=== PATIENT | female | born 1965 | race Caucasian/White ===

== ENCOUNTER 2017-09-15 16:19 | Observation (INO) ==
[2017-09-15] MEDS ORDERED: ADENOSINE IVP ONE (16:45)
[2017-09-15] MEDS ORDERED: ADENOSINE 6mg/2ml INJECTION IVP ONE (16:45)
[2017-09-15] MEDS ORDERED: SALINE FLUSH 10ml SYRINGE IVF PRN (16:45)
[2017-09-15] MEDS ORDERED: NS 1,000 ML IV ONE (16:45)
[2017-09-15] MEDS ORDERED: DiltiaZEM 25 MG/5 ML INJECTION IVP ONE ×2 (16:45→17:21)
--- NOTE | 2017-09-15 16:53 | Emergency Department Report ---
Cardiac General HPI - General Stated Complaint: Irregular heart rhythm Source: patient Mode of arrival: ambulatory Limitations: no limitations - History of Present Illness HPI narrative: 51yo woman presents to the ER for a fast heart rate. Pt has a known h/o mitral valve prolapse and SVT. Pts delivery mgr is Dr. Meyer - pt has not seen him for quite some time. Appx 1 year ago, she self-d/c'ed her digoxin and labetalol. Today, pt was talking on the phone with her children when she felt her heart go into a fast rhythm again. Pt presented to the ER for evaluation. Occurred At: home Onset (ago): minute(s) Duration: constant Severity: similar to previous episodes Context: change in medication Activites at Onset: emotional stress Prior Chest Pain/Cardiac Workup: echocardiography Modifying Factors: none Nitro Today: no nitro taken today Aspirin Today: unknown Associated Symtoms: shortness of breath, nausea, anxiety History of Similar Symptoms: Yes - Related Data Home Medications Medication Instructions Recorded Confirmed Gabapentin 900 mg PO HS #360 10/14/14 09/15/17 buPROPion HCl [Bupropion Xl] 300 mg PO HS #30 10/14/14 09/15/17 Amitriptyline [Elavil] 50 mg PO HS 09/15/17 09/15/17 Cholecalciferol [Vit. D-3] 1,000 unit PO DAILY 09/15/17 09/15/17 Multivitamin [One Daily 1 each PO DAILY 09/15/17 09/15/17 Multivitamin] Allergies Allergy/AdvReac Type Severity Reaction Status Date / Time hydrocodone Allergy Severe ALL Verified 09/15/17 16:52 NARCOTICS MAKE HER ITCH, NO RASH; NAUSEA ON EMPTY STOMAC Iodinated Contrast- Oral and Allergy Severe SWOLLEN Verified 09/15/17 16:52 IV Dye LIP, HIVES Sulfa (Sulfonamide Allergy Severe hives, Verified 09/15/17 16:52 Antibiotics) anaphalactic reaction Tetanus Vaccines and Toxoid Allergy Intermediate FEVER,NAUSEA, Verified 16:52 ACHEY ibuprofen Allergy Unknown ITCHING Verified 09/15/17 16:52 morphine AdvReac Unknown MAKES ITCH Verified 09/15/17 16:52 Review of Systems All systems: reviewed and negative except as stated Cardiovascular: Reports: as per HPI, palpitations PFSH Patient Stated Medical History Cardiac Arrhythmia Yes Other Cardiology Yes: SVT, mitral valve prolapse Medical History Updates: Anxiety/depr - Social History Smoking status: Never smoker Physical Exam - Limitations Limitations: no limitations - General General appearance: alert, in distress - Normal Exams: Head:: Normocephalic without trauma Eyes:: Pupils are PERRLA w/ EOMI, No scleral icterus, irritation, or foreign bodies noted ENMT:: No facial trauma, nasal exudates, pharyngeal erythema, or exudates are noted Neck:: Full range of motion, without adenopathy Lymphatic:: No lymphadenopathy Musculoskeletal:: No tenderness, or deformity noted Integumentary:: No rashes, hives, or bruising noted Neurological:: Patient is alert, and oriented Psychiatric:: Patient exhibits, appropriate attention Course - Consultations Consultation #1: Dr. Zazueta: Presented to the ER and evaluated pt. Will admit pt for rate control and conversion. Time: 17:22 Vital Signs Pulse Rate 197 H 09/15/17 16:20 Temperature 98.0 F 09/15/17 16:27 Pulse Rate 127 H 09/15/17 17:28 Respiratory Rate 19 09/15/17 17:28 Blood Pressure 113/76 09/15/17 17:28 Pulse Oximetry 98 09/15/17 17:28 Cardiac General - MDM Narrative Medical decision making narrative: Pt with SVT on initial presentation. Adenocard x2 decreased pts rate to 130s. Pt given diltiazem 20mg bolus with decrease to 110s. Pt given a second dose of diltiazem (25mg) with no improvement in rate. Discussed case with Dr. Zazueta, who will admit to CCU for rate control and plan for conversion. - Differential Diagnosis Differential diagnosis: Likely: palpitations, anxiety, sinus tachycardia, artial fibrillation, artial flutter, supraventricular tachycardia - Medical Records Attestation: I reviewed the patient's medical records. - Lab Data Attestation: I reviewed the patient's lab results. Result diagrams: 09/15/17 16:35 09/15/17 16:35 Lab Results 09/15/17 09/15/17 09/15/17 Range/Units 16:35 16:35 16:35 WBC 6.8 (4.5-11.0) T/MM3 RBC 4.45 (4.00-5.20) M/MM3 Hgb 13.0 (12-16) GM/DL Hct 38.9 (36-46) % MCV 87.4 (80-100) UM3 MCH 29.2 (26-34) UUG MCHC 33.4 (31-37) GM/DL RDW Std Deviation 39.4 (36.9-50.2) FL Plt Count 250 (130-400) T/MM3 MPV 9.6 (9.4-12.4) UM3 Immature Gran % (Auto) 0.0 (0.0-0.5) % Neut % (Auto) 60.5 (33-66) % Lymph % (Auto) 30.2 (23-45) % [place] % (Auto) 6.2 (0-9.0) % Eos % (Auto) 2.5 (0-4) % Baso % (Auto) 0.6 (0-2) % Neut # (Auto) 4.1 (1.8-7.7) T/MM3 Lymph # (Auto) 2.0 (1-4.8) T/MM3 [place] # (Auto) 0.4 (0-0.8) T/MM3 Eos # (Auto) 0.2 (0-0.5) T/MM3 Baso # (Auto) 0.0 (0-0.2) T/MM3 Abs Immat Gran (auto) 0.00 (0.00-0.03) T/MM3 D-Dimer < 150 (0-230) NG/ML Turbidity < 20 (0-20) Sodium 145 H (134-144) MEQ/L Potassium 4.7 (3.6-5) MEQ/L Chloride 104 (98-107) MEQ/L Carbon Dioxide 30 (22-30) MEQ/L Anion Gap 11 (5-15) MEQ/L BUN 10.0 (7-17) MG/DL Creatinine 1.0 (0.7-1.2) MG/DL GFR Calculation 59 BUN/Creatinine Ratio 10 (6-26) RATIO Glucose 108 (65-110) MG/DL Calculated Osmolality 279 (261-280) MOSM/KG Calcium 9.7 (8.4-10.2) MG/DL Total Bilirubin 0.20 (0.20-1.30) MG/DL Icterus Index < 2 (0-7) AST 24 (14-36) U/L ALT 37 (9-52) U/L Alkaline Phosphatase 44 (38-126) U/L Troponin I < 0.012 (0-0.12) ng/ml Total Protein 8.0 (6.3-8.2) G/DL Albumin 4.9 (3.5-5.0) G/DL Globulin 3.1 (2.4-3.6) G/DL Albumin/Globulin Ratio 1.6 (1.1-2.2) RATIO Specimen Hemolysis < 15 (0-25) Ur Collection Type Urine Color (YELLOW) Urine Clarity Urine pH (5.0-8.0) Ur Specific [place] (1.015-1.025) Urine Protein (NEGATIVE) Urine Glucose (UA) (NEGATIVE) Urine Ketones (NEGATIVE) Urine Occult Blood (NEGATIVE) Urine Nitrate (NEGATIVE) Urine Bilirubin (NEGATIVE) Urine Urobilinogen (NORMAL) EU/DL Ur Leukocyte Esterase (NEGATIVE) Urinalysis Comment 09/15/17 Range/Units 17:01 WBC (4.5-11.0) T/MM3 RBC (4.00-5.20) M/MM3 Hgb (12-16) GM/DL Hct (36-46) % MCV (80-100) UM3 MCH (26-34) UUG MCHC (31-37) GM/DL RDW Std Deviation (36.9-50.2) FL Plt Count (130-400) T/MM3 MPV (9.4-12.4) UM3 Immature Gran % (Auto) (0.0-0.5) % Neut % (Auto) (33-66) % Lymph % (Auto) (23-45) % [place] % (Auto) (0-9.0) % Eos % (Auto) (0-4) % Baso % (Auto) (0-2) % Neut # (Auto) (1.8-7.7) T/MM3 Lymph # (Auto) (1-4.8) T/MM3 [place] # (Auto) (0-0.8) T/MM3 Eos # (Auto) (0-0.5) T/MM3 Baso # (Auto) (0-0.2) T/MM3 Abs Immat Gran (auto) (0.00-0.03) T/MM3 D-Dimer (0-230) NG/ML Turbidity (0-20) Sodium (134-144) MEQ/L Potassium (3.6-5) MEQ/L Chloride (98-107) MEQ/L Carbon Dioxide (22-30) MEQ/L Anion Gap (5-15) MEQ/L BUN (7-17) MG/DL Creatinine (0.7-1.2) MG/DL GFR Calculation BUN/Creatinine Ratio (6-26) RATIO Glucose (65-110) MG/DL Calculated Osmolality (261-280) MOSM/KG Calcium (8.4-10.2) MG/DL Total Bilirubin (0.20-1.30) MG/DL Icterus Index (0-7) AST (14-36) U/L ALT (9-52) U/L Alkaline Phosphatase (38-126) U/L Troponin I (0-0.12) ng/ml Total Protein (6.3-8.2) G/DL Albumin (3.5-5.0) G/DL Globulin (2.4-3.6) G/DL Albumin/Globulin Ratio (1.1-2.2) RATIO Specimen Hemolysis (0-25) Ur Collection Type Urine, clean catch Urine Color Yellow (YELLOW) Urine Clarity Clear Urine pH 6.5 (5.0-8.0) Ur Specific [place] <=1.005 L (1.015-1.025) Urine Protein Negative (NEGATIVE) Urine Glucose (UA) Negative (NEGATIVE) Urine Ketones Negative (NEGATIVE) Urine Occult Blood Negative (NEGATIVE) Urine Nitrate Negative (NEGATIVE) Urine Bilirubin Negative (NEGATIVE) Urine Urobilinogen 0.2 (NORMAL) EU/DL Ur Leukocyte Esterase Negative (NEGATIVE) Urinalysis Comment Microscopic not ind. - Radiology Data Attestation: I reviewed the patient's radiology results. - EKG Data EKG #1 EKG attestation: Yes: I reviewed and interpreted this EKG. EKG shows normal: sinus rhythm, axis, intervals, QRS complexes Rate: tachycardia Interpretation: nonspecific ST-T wave changes EKG #2 EKG attestation: Yes: I reviewed and interpreted this EKG. EKG shows normal: sinus rhythm, axis, intervals, QRS complexes, ST-T waves Rate: tachycardia EKG #3 EKG attestation: Yes: I reviewed and interpreted this EKG. EKG shows normal: sinus rhythm, axis, intervals, QRS complexes, ST-T waves Rate: tachycardia Disposition Clinical Impression: SVT (supraventricular tachycardia) A-fib Qualifiers: Atrial fibrillation type: paroxysmal Qualified Code(s): I48.0 - Paroxysmal atrial fibrillation Disposition: [facility] Prescriptions: No Action Amitriptyline [Elavil] 50 mg PO HS buPROPion HCl [Bupropion Xl] 300 mg PO HS #30 Gabapentin 900 mg PO HS #360 Cholecalciferol [Vit. D-3] 1,000 unit PO DAILY Multivitamin [One Daily Multivitamin] 1 each PO DAILY Referrals: Remington Johns DO [Primary Care Provider] - MARK LEVINE [Family Provider] - Time of Disposition: 17:39 - Seen By: physician
--- OUTSIDE RECORDS SUMMARY | 2017-09-15 17:30 | External Medical Summary | Referral Summary ---
:1965 Author Organization [facility], [facility] Address [address] [place] [address] [place] [address] Care Team Providers Name Role Phone No PCP, Pt States Primary Care Physician Encounter VC Date(s): 12/24/16 - 12/24/16 [facility], [address] [place] [phone] [place] Discharge Diagnosis: Family history of gastric cancer Discharge Diagnosis: Abnormal CT scan Discharge Diagnosis: Blood in stool Discharge Diagnosis: Chronic GERD Discharge Disposition: 01-Home or Self Care Attending Physician: Navdeep Fuentes MD Admitting Physician: Navdeep Fuentes MD Referring Physician: Nneka Hoskins APRN Vital Signs Most recent to oldest [Reference Range]: 1 Temperature Tympanic [36.6-38.1 degC] 37.1 degC (12/24/16 3:55 PM) Peripheral Pulse Rate [60-100 bpm] 112 bpm *HI* (12/24/16 3:55 PM) Blood Pressure [90-140/60-90 mmHg] 126/80 mmHg (12/24/16 3:55 PM) SpO2 98 % (12/24/16 3:55 PM) Problem List Condition Effective Dates Status Health Status Informant Chronic depression(Confirmed) Active Interstitial cystitis(Confirmed) Active Chronic UTI (urinary tract Active infection)(Confirmed) Fibrocystic breast Active maspopathy(Confirmed) Irregular heart rhythm(Confirmed) Active Allergies, Adverse Reactions, Alerts Substance Reaction Severity Status ciprofloxacin Anaphylaxis Severe Active doxycycline Tongue swelling Mild Active Itching... ibuprofen Itching Active Rash iodine Anaphylaxis Severe Active sulfamethoxazole-trimethoprim Adverse Reaction Active sulfanilamide topical Hives Active Medications amitriptyline 75 mg oral tablet 1 tabs, Oral, Bedtime (once a day), 0 Refill(s) Start Date: 08/30/14 Status: Orderedatenolol 25 mg oral tablet 25 mg 1 tabs, Oral, Daily, # 30 tabs, 0 Refill(s) Start Date: 04/29/15 Status: OrderedBudeprion SR 150 mg/12 hours oral tablet, extended release 1 tabs, Oral, Daily, 0 Refill(s) Start Date: 08/30/14 Status: OrderedbusPIRone 15 mg oral tablet 15 mg 1 tabs, Oral, TID, Anxiety, # 90 tabs, 0 Refill(s), Pharmacy: [facility] [id number], 1 tabs Oral TID,PRN:Anxiety Start Date: 12/19/16 Status: Ordereddigoxin Daily, 0 Refill(s) Start Date: 03/28/16 Status: Orderedgabapentin 300 mg oral capsule 3 caps, Oral, Bedtime (once a day), 0 Refill(s) Start Date: 08/30/14 Status: Orderedlidocaine 0.5% topical gel See Instructions, unsure of dose uses every 4hours, 0 Refill(s) Start Date: 08/30/14 Status: OrderedVivelle-Dot 0.05 mg/24 hours twice weekly transdermal film, extended release patches, Topical, 2x/Wk, 0 Refill(s) Start Date: 05/30/15 Status: Ordered Results No data available for this section Immunizations Given and Recorded Vaccine Date Status Refusal Reason influenza virus vaccine, live 10/06/13 Given Procedures Procedure Date Related Diagnosis Body Site Colonoscopic polypectomy1 12/06/16 Cysto, Gabriele/Dil, [place], SLT of TRIG & IC 07/16/10 Right salpingo-oophorectomy 05/13/08 Colonoscopy2 04/21/08 Esophagogastroduodenoscopy3 04/21/08 H/O: hysterectomy4 1994 Caesarean section5 Cystoscopy 1in tolowa dee-ni'. large ppolyp in rectal [id number] normal [id number] normal [id number] and LSO5x3 Social History Social History Type Response Smoking Status Never smoker Assessment and Plan Extracted from: Title: Ambulatory Patient Education Author: Navdeep Fuentes MD Date: Procedures Esophagogastroduodenoscopy Esophagogastroduodenoscopy (EGD) is a procedure that is used to examine the lining of the esophagus, stomach, and first part of the small intestine ( duodenum). A long, flexible, lighted tube with a came ra attached (endoscope) is inserted down the throat to view these organs. This procedure is done to detect problems or abnormalities, such as inflammation, bleeding, ulcers, or growths, in order to lyn t them. The procedure lasts 520 minutes. It is usually an outpatient procedure, but it may need to be performed in a hospital in emergency cases. LET YOUR HEALTH CARE PROVIDER KNOW ABOUT: Any allergies you have. All medicines you are taking, including vitamins, herbs, eye drops, creams, and wchx-deh-ftdtdoz medicines. Previous problems you or members of your family have had with the use of anesthetics. Any blood disorders you have. Previous surgeries you have had. Medical conditions you have. RISKS AND COMPLICATIONS Generally, this is a safe procedure. However, problems can occur and include: Infection. Bleeding. Tearing (perforation) of the esophagus, stomach, or duodenum. Difficulty breathing or not being able to breathe. Excessive sweating. Spasms of the larynx. Slowed heartbeat. Low blood pressure. BEFORE THE PROCEDURE Do not eat or drink anything after midnight on the night before the procedure or as directed by your health care provider. Do not take your regular medicines before the procedure if your health care provider asks you not to. Ask your health care provider about changing or stopping those medicines. If you wear dentures, be prepared to remove them before the procedure. Arrange for someone to drive you home after the procedure. PROCEDURE A numbing medicine (local anesthetic) may be sprayed in your throat for comfort and to stop you from gagging or coughing. You will have an IV tube inserted in a vein in your hand or arm. You will receive medicines and fluids through this tube. You will be given a medicine to relax you (sedative). A pain reliever will be given through the IV tube. A mouth guard may be placed in your mouth to protect your teeth and to keep you from biting on the endoscope. You will be asked to lie on your left side. The endoscope will be inserted down your throat and into your esophagus , stomach, and duodenum. Air will be put through the endoscope to allow your health care provider to clearly view the lining of your esophagus. The lining of your esophagus, stomach, and duodenum will be examined. During the exam, your health care provider may: Remove tissue to be examined under a microscope (biopsy) for inflammation, infection, or other medical problems. Remove growths. Remove objects (foreign bodies) that are stuck. Treat any bleeding with medicines or other devices that stop tissues from bleeding (hot cautery, clipping devices). Widen (dilate) or stretch narrowed areas of your esophagus and stomach. The endoscope will be withdrawn. AFTER THE PROCEDURE You will be taken to a recovery area for observation. Your blood pressure, heart rate, breathing rate, and blood oxygen level will be monitored often until the medicines you were given have worn off. Do not eat or drink anything until the numbing medicine has worn off and your gag reflex has returned. You may choke. Your health care provider should be able to discuss his or her findings with you. It will take longer to discuss the test results if any biopsies were taken. This information is not intended to replace advice given to you by your health care provider. Make sure you discuss any questions you have with your health care provider. Document Released: 03/20/2006 Document Revised: 12/08/2015 Document Reviewed: 10/20/2013 [employer] Patient Education 2016 [employer] No follow up information was provided.
--- OUTSIDE RECORDS SUMMARY | 2017-09-15 17:30 | External Medical Summary | Referral Summary ---
:1965 Author Organization [facility] [place] [address] Care Team Providers Name Role Phone Justin Wyatt Primary Care Physician Encounter VC Date(s): 05/30/15 - 05/30/15 [facility] [place] [address] [place] Discharge Disposition: 01-Home or Self Care Attending Physician: Justin Wyatt MD Admitting Physician: Justin Wyatt MD Vital Signs Most recent to oldest [Reference Range]: 1 Temperature Tympanic [36.6-38.1 degC] 36.5 degC *LOW* (05/30/15 1:45 PM) Peripheral Pulse Rate [60-100 bpm] 88 bpm (05/30/15 1:45 PM) Blood Pressure [90-140/60-90 mmHg] 96/66 mmHg (05/30/15 1:45 PM) Problem List No data available for this section Allergies, Adverse Reactions, Alerts Substance Reaction Severity Status ciprofloxacin Anaphylaxis Severe Active doxycycline Tongue swelling Mild Active Itching 26-NOV-2015 19:26:55<$> ibuprofen Itching Active Rash iodine Anaphylaxis Severe [...] Daily, 0 Refill(s) Start Date: 08/30/14 Status: Orderedgabapentin 300 mg oral capsule 3 [...] No data available for this section Immunizations Vaccine Date Refusal Reason influenza virus vaccine, live 10/06/13 Procedures No data available for this section Social History Social History Type Response Smoking Status Never smoker Assessment and Plan Extracted from: Title: Office Visit Note Author: Justin Wyatt MD Date: 05/30/15 Assessment/Plan Infected tick bite Plan: We'll place her on doxycycline. You requested Diflucan because of history of these infections. Follow-up if you're not improving. Orders: doxycycline, 100 mg 1 tabs, Oral, BID, X 10 days, # 20 tabs, 0 Refill (s), Pharmacy: [facility] [id number], 1 tabs Oral BID,x10 days fluconazole, 150 mg 1 tabs, Oral, qWeek, X 2 weeks, # 2 tabs, 1 Refill(s), Pharmacy: [facility] [id number], 1 tabs Oral qWeek,x2 weeks
--- OUTSIDE RECORDS SUMMARY | 2017-09-15 17:30 | External Medical Summary ---
:1965 Author Organization [employer] Care Team Providers Name Role Phone Ildefonso Meyre Provider Role Unavailable Allergies, Adverse Reactions, Alerts Substance Reaction Event Type Ibuprofen lip numbness Drug Allergy Sulfanomides Info Not Available Non Drug Allergy Tetanusdiphtheria Toxoids Td *toxoids* Info Not Available Non Drug Allergy Problems Problem Type Condition Code Onset Dates Condition Status Problem Urinary tract infection, site not 599.0 Active specified Problem Unspecified cardiac dysrhythmia 427.9 Active Problem Mononeuritis of unspecified site 355.9 Active Assessment Palpitations R00.2 Active Assessment SVT (supraventricular tachycardia) I47.1 Active Problem Routine general medical examination V70.0 Inactive at health care facility Problem Abdominal pain, unspecified site 789.00 Inactive Problem Flu vaccine need V04.81 Active Problem Dysthymic disorder 300.4 Active Problem Mitral valve disorders 424.0 Active Problem Unspecified acute reaction to stress 308.9 Active Problem Flatulence, eructation, and gas pain 787.3 Active Medications Medication Code Code Instructions Start End Status Dosage System Date Date Estrace [facility] [address]-66 0.1 MG/GM not Vaginal 1-2 prn defined Gabapentin [facility] [address]-66 300 MG Oral 4 Sep 01, not daily 2012 defined Diflucan [facility] [address]-88 100 MG Oral 1 May 13, not (one) daily 2013 defined Amitriptyline [facility] [address]-03 50 MG Oral 1 at Sep 01, not HCl bedtime 2012 defined Wellbutrin XL [place] [id number] 300 MG 1 (ONE) TABLET ER 24HR, [place], [place] [address]-11 25 MG Oral 1 Aug 24, written (one) Tablet 2012 rx one daily Vivelle-Dot [facility] [address]-23 0.075 MG/24HR not Transdermal 2 defined weekly Procedures Procedure Coding System Code Date Office Visit, Est Pt., Level 3 CPT-4 56165 Sep 18, 2015 Vital Signs Date/Time: Sep 18, 2015 Blood Pressure Systolic 120 mm Hg Weight 121.6 lbs Height 64 in BMI 20.87 Index Respiratory Rate 16 /min Cardiac Monitoring Heart Rate 70 /min Blood Pressure Diastolic 72 mm Hg Results No Known Results Summary Purpose [employer] Submission
--- OUTSIDE RECORDS SUMMARY | 2017-09-15 17:30 | External Medical Summary ---
:1965 Author Organization [employer] Care Team Providers Name Role Phone Marilu Tarango Provider Role Unavailable Allergies No Known Allergies Problems Problem Type Condition Code Onset Dates Condition Status Problem Urinary tract infection, site not 599.0 Active specified Problem Unspecified cardiac dysrhythmia 427.9 Active Problem Mononeuritis of unspecified site 355.9 Active Problem Routine general medical examination V70.0 Inactive at health care facility Problem Abdominal pain, unspecified site 789.00 Inactive Problem Flu vaccine need V04.81 Active Problem Dysthymic disorder 300.4 Active Problem Mitral valve disorders 424.0 Active Problem Unspecified acute reaction to stress 308.9 Active Problem Flatulence, eructation, and gas pain 787.3 Active Medications No Known Medications Results No Known Results Summary Purpose [employer] Submission
--- OUTSIDE RECORDS SUMMARY | 2017-09-15 17:30 | External Medical Summary ---
:1965 Author Organization [employer] Care Team Providers Name Role Phone Marilu Tarango Provider Role Unavailable Allergies, Adverse Reactions, Alerts Substance Reaction Event Type Ibuprofen lip numbness Drug Allergy Cipro rash Drug Allergy Sulfanomides Info Not Available Non Drug Allergy Tetanusdiphtheria Toxoids Td *toxoids* Info Not Available Non Drug Allergy Problems Problem Type Condition Code Onset Dates Condition Status Problem Mitral valve disorder I05.9 Active Problem Depression with anxiety F41.8 Active Problem Hematochezia K92.1 Active Assessment UTI (urinary tract infection) N39.0 Active Medications Medication Code Code Instructions Start End Status Dosage System Date Date Atenolol [facility] [address]-25 25 MG Oral 1 Aug 24, written (one) Tablet 2012 rx one daily Vivelle-Dot [facility] [address]-92 0.075 MG/24HR not Transdermal 2 defined weekly Gabapentin [facility] [address]-66 300 MG Oral 4 Sep 01, not daily 2012 defined Wellbutrin XL [facility] [id number] 300 MG 1 (ONE) TABLET ER 24HR, ORAL, QD Amitriptyline [facility] [address]-02 50 MG Oral 1 at Sep 01, not HCl bedtime 2012 defined Results No Known Results Summary Purpose [employer] Submission
--- OUTSIDE RECORDS SUMMARY | 2017-09-15 17:30 | External Medical Summary ---
:1965 Author Organization [employer] Care Team Providers Name Role Phone Marilu Tarango Provider Role Unavailable Allergies No Known Allergies Problems Problem Type Condition Code Onset Dates Condition Status Problem Mitral valve disorder I05.9 Active Problem Depression with anxiety F41.8 Active Problem Hematochezia K92.1 Active Assessment UTI (urinary tract infection) N39.0 Active Assessment Yeast infection B37.9 Active Medications Medication Code Code Instructions Start End Status Dosage System Date Date Atenolol [facility] [address]-99 25 MG Oral 1 Aug 24, written (one) Tablet 2012 rx one daily Vivelle-Dot [facility] [address]-47 0.075 MG/24HR not Transdermal 2 defined weekly Amitriptyline [facility] [address]-50 50 MG Oral 1 at Sep 01, not HCl bedtime 2012 defined Amoxicillin [facility] [address]-46 500 MG Orally Oct 18, Oct 25, 1 capsule every 12 hrs 2015 2015 Diflucan [facility] [address]-98 100 MG Orally Oct 18Oct 28, 1 tablet Once a day 2015 2015 Wellbutrin XL [facility] [id number] 300 MG 1 (ONE) TABLET ER 24HR, ORAL, QD Gabapentin [facility] [address]-06 300 MG Oral 4 Sep 01, not daily 2012 defined Results No Known Results Summary Purpose [employer] Submission
--- OUTSIDE RECORDS SUMMARY | 2017-09-15 17:31 | External Medical Summary ---
:1965 Author Organization eClinicalWorks Care Team Providers Name Role Phone Jonah Schwab Provider Role Unavailable Allergies, Adverse Reactions, Alerts [...] Flatulence, eructation, and gas pain 787.3 Active Assessment Dysthymic disorder F34.1 Active Assessment Mitral valve disorder I05.9 Active Assessment Acute reaction to stress F43.0 Active Assessment Arrhythmia I49.9 Active Medications Medication Code Code Instructions Start End Status Dosage System Date Date Gabapentin [facility] [address]-92 300 MG Oral 4 Sep 01, not daily 2012 defined Estrace [facility] [address]-43 0.1 MG/GM not Vaginal 1-2 prn defined Diflucan [facility] [address]-87 100 MG Oral 1 May 13, not (one) daily 2013 defined Amitriptyline [facility] [address]-75 50 MG Oral 1 at Sep 01, not HCl bedtime 2012 defined Wellbutrin XL [facility] 49204433636 300 MG 1 (ONE) TABLET ER 24HR, ORAL, QD Vivelle-Dot [facility] [address]-61 0.075 MG/24HR not Transdermal 2 defined weekly Atenolol [facility] [address]-17 25 MG Oral 1 Aug 24, written (one) Tablet 2012 rx one daily Procedures Procedure Coding System Code Date Office Visit, Est Pt., Level 3 CPT-4 18067 Sep 15, 2015 Vital Signs Date/Time: Sep 15, 2015 Temperature 96.7 F Weight 126 lb 4 oz lbs Height 64 in Respiratory Rate 16 /min Cardiac Monitoring Heart Rate 81 /min Blood Pressure Diastolic 64 mm Hg Blood Pressure Systolic 108 mm Hg BMI 21.67 Index Oximetry 98 % Results No Known Results Summary Purpose eClinicalWorks Submission
--- OUTSIDE RECORDS SUMMARY | 2017-09-15 17:31 | External Medical Summary ---
[...] End Status Dosage System Date Date Atenolol [facility] [address]-88 25 MG Oral 1 Aug 24, written (one) Tablet 2012 rx one daily Cipro [facility] [address]-84 500 MG Orally Nov 01, Nov 06, 1 tablet Twice a day 2015 2015 Amitriptyline [facility] [address]-88 50 MG Oral 1 at Sep 01, not HCl bedtime 2012 defined Vivelle-Dot [facility] [address]-73 0.075 MG/24HR not Transdermal 2 defined weekly Wellbutrin XL [facility] 62039224888 300 MG 1 (ONE) TABLET ER 24HR, ORAL, QD Gabapentin [facility] [address]-05 300 MG Oral 4 Sep 01, not daily 2012 defined Results No Known Results Summary Purpose eClinicalWorks Submission
--- OUTSIDE RECORDS SUMMARY | 2017-09-15 17:31 | External Medical Summary | Referral Summary ---
:1965 Author Organization [facility] [place] [address] Care Team Providers Name Role Phone No PCP, States Primary Care Physician Encounter VC Date(s): 12/18/16 - 12/18/16 [facility] [place] [address] Discharge Disposition: 01-Home or Self Care Attending Physician: Nneka Hoskins APRN Admitting Physician: Nneka Hoskins APRN Vital Signs Most recent to oldest [Reference Range]: 1 Temperature Tympanic [36.6-38.1 degC] 36.9 degC (12/18/16 11:16 AM) Peripheral Pulse Rate [60-100 bpm] 88 bpm (12/18/16 11:16 AM) Respiratory Rate [14-20 br/min] 16 br/min (12/18/16 11:16 AM) Blood Pressure [90-140/60-90 mmHg] 110/70 mmHg (12/18/16 11:16 AM) SpO2 98 % (12/18/16 11:16 AM) Problem List Condition Effective Dates Status Health [...] Daily, 0 Refill(s) Start Date: 08/30/14 Status: Ordereddigoxin Daily, 0 Refill(s) Start Date: [...] Procedures Procedure Date Related Diagnosis Body Site Cysto, Gabriele/Dil, [place], SLT of TRIG & IC 07/16/10 Right salpingo-oophorectomy 05/13/08 Colonoscopy1 04/21/08 Esophagogastroduodenoscopy2 04/21/08 H/O: hysterectomy3 1994 Cystoscopy 1within normal [id number] normal [id number] and LSO Social History Social History Type Response Smoking Status Never smoker Assessment and Plan No data available for this section
--- OUTSIDE RECORDS SUMMARY | 2017-09-15 17:31 | External Medical Summary | Referral Summary ---
:1965 Author Organization [facility], [facility] Address [address] [place] [address] [place] [address] Care Team Providers Name Role Phone Justin Wyatt Primary Care Physician Encounter VC Date(s): 04/29/15 - 04/29/15 [facility], [address] [place] [address] [place] Discharge Diagnosis: Conjunctivitis of right eye Discharge Disposition: 01-Home or Self Care Attending Physician: Remington Johns DO Admitting Physician: Remington Johns DO Vital Signs Most recent to oldest [Reference Range]: 1 Temperature Tympanic [36.6-38.1 degC] 36.3 degC *LOW* (04/29/15 11:39 AM) Apical Heart Rate [60-100 bpm] 80 bpm (04/29/15 11:39 AM) Blood Pressure [90-140/60-90 mmHg] 112/68 mmHg (04/29/15 11:39 AM) SpO2 98 % (04/29/15 11:39 AM) Problem List No data available for this section Allergies, Adverse Reactions, Alerts Substance Reaction Severity Status ciprofloxacin Anaphylaxis Severe Active doxycycline Tongue swelling Mild Active Itching ibuprofen Itching Active Rash iodine Anaphylaxis Severe [...] Extracted from: Title: Office Visit Note Author: Remington Johns DO Date: 04/29/15 Assessment/Plan Conjunctivitis of right eye 1. Clinical finding consistent with irritant conjunctivitis to the right eye. 2. Prednisone 20 mg daily for 3 days for the acute inflammatory process. Patient is unable to tolerate ibuprofen like medication. 3. Refresh eye drops 3-4 drops every 4 hours as needed for discomfort. 4. Follow-up if worsening presentation. Ordered: Office Visit Level 3 Est 50773 Orders: predniSONE, 20 mg 1 tabs, Oral, Daily, X 3 days, # 3 tabs, 0 Refill(s ), Pharmacy: [id number], 1 tabs Oral Daily,x3 days
--- OUTSIDE RECORDS SUMMARY | 2017-09-15 17:31 | External Medical Summary ---
:1965 Author Organization eClinicalWorks Care Team Providers Name Role Phone SukhdeepMarilu Provider Role Unavailable Allergies No Known Allergies Problems Problem Type Condition ICD-9 Code Onset Dates Condition Status Problem Urinary tract infection, site 599.0 Active not specified Problem Unspecified cardiac dysrhythmia 427.9 Active Problem Mononeuritis of unspecified site 355.9 Active Assessment Flu vaccine need V04.81 Active Problem Routine general medical V70.0 Inactive examination at health care facility Problem Abdominal pain, unspecified site 789.00 Inactive Problem Flu vaccine need V04.81 Active Problem Dysthymic disorder 300.4 Active Problem Mitral valve disorders 424.0 Active Problem Unspecified acute reaction to 308.9 Active stress Problem Flatulence, eructation, and gas 787.3 Active pain Medications Medication Code Code Instructions Start End Date Status Dosage System Date Amitriptyline HCl NDC 13780-47 50 MG Oral 1 at Sep 01, not 01-00 bedtime 2012 defined Wellbutrin XL NDC 46143-89 300 MG Oral 1 June 09, not 31-30 (one) qd 2013 defined Atenolol NDC 89999-60 25 MG Oral 1 Aug 24, written rx 87-01 (one) Tablet one 2012 daily Estrace NDC 58203-84 0.1 MG/GM not 54-14 Vaginal 1-2 prn defined Vivelle-Dot NDC 01824-25 0.075 MG/24HR not 45-42 Transdermal 2 defined weekly Gabapentin NDC 54359-16 300 MG Oral 4 Sep 01, not 39-19 daily 2012 defined Diflucan NDC 85060-67 100 MG Oral 1 May 13, not 20-30 (one) daily 2013 defined Procedures Procedure Coding System Code Date IMMUNIZATION ADMIN CPT-4 19608 Aug 08, 2014 Influenza (split), 3 yrs and above CPT-4 09676 Aug 08, 2014 Results No Known Results Immunizations Vaccine Administration Date Flu vaccine no Preserv 3 and > Aug 08, 2014 Flu vaccine no Preserv 3 and > Aug 08, 2014 Summary Purpose eClinicalWorks Submission
--- OUTSIDE RECORDS SUMMARY | 2017-09-15 17:31 | External Medical Summary | Referral Summary ---
:1965 Author Organization [facility], [facility] Address [address] [place] [address] [place] [address] Encounter VC Date(s): 02/26/16 - 02/26/16 [facility], [address] [place] [address] [place] Discharge Diagnosis: History of candidal vulvovaginitis Discharge Diagnosis: Acute UTI Discharge Disposition: 01-Home or Self Care Attending Physician: Brad Paniagua PA-C Admitting Physician: Brad Paniagua PA-C Vital Signs Most recent to oldest [Reference Range]: 1 Temperature Tympanic [36.6-38.1 degC] 36.8 degC (02/26/16 2:00 PM) Peripheral Pulse Rate [60-100 bpm] 88 bpm (02/26/16 2:00 PM) Blood Pressure [90-140/60-90 mmHg] 100/58 mmHg (02/26/16 2:00 PM) SpO2 99 % (02/26/16 2:00 PM) Problem List Condition Effective Dates Status Health Status Informant Chronic depression(Confirmed) Active Chronic UTI (urinary tract Active infection)(Confirmed) Irregular heart rhythm(Confirmed) Active Allergies, Adverse Reactions, [...] 4hours, 0 Refill(s) Start Date: 08/30/14 Status: Orderednitrofurantoin macrocrystals 100 mg oral capsule 100 mg 1 caps, Oral, QID, X 7 days, # 28 caps, 0 Refill(s), Pharmacy: [id number], 1 caps Oral QID,x7 days Start Date: 02/26/16 Stop Date: 03/04/16 Status: OrderedVivelle-Dot 0.05 mg/24 hours twice weekly transdermal film, extended release patches, Topical, 2x/Wk, 0 Refill(s) Start Date: 05/30/15 Status: Ordered Results No data available for this section Immunizations Vaccine Date Refusal Reason influenza virus vaccine, live 10/06/13 Procedures Procedure Date Related Diagnosis Body Site Cystoscopy H/O: hysterectomy Social History Social History Type Response Smoking Status Never smoker Assessment and Plan No data available for this section
--- OUTSIDE RECORDS SUMMARY | 2017-09-15 17:31 | External Medical Summary | Referral Summary ---
:1965 Author Organization [facility] [place] [address] Care Team Providers Name Role Phone No PCP, Pt States Primary Care Physician Encounter VC Date(s): 03/28/16 - 03/28/16 [facility] [address] [place] [address] Discharge Diagnosis: Pelvic and perineal pain Discharge Disposition: 01-Home or Self Care Attending Physician: Nneka Hoskins APRN Admitting Physician: Nneka Hoskins APRN Vital Signs Most recent to oldest [Reference Range]: 1 Peripheral Pulse Rate [60-100 bpm] 80 bpm (03/28/16 11:10 AM) Blood Pressure [90-140/60-90 mmHg] 102/56 mmHg (03/28/16 11:10 AM) SpO2 98 % (03/28/16 11:10 AM) Problem List Condition Effective Dates Status [...] Date Related Diagnosis Body Site Cysto, Gabriele/Dil, [place], SLT of TRIG & IC 07/16/10 Right salpingo-oophorectomy 05/13/08 Colonoscopy1 04/21/08 Esophagogastroduodenoscopy2 04/21/08 H/O: hysterectomy3 1994 Cystoscopy 1within normal [id number] normal [id number] and LSO Social History Social History Type Response Smoking Status Never smoker Assessment and Plan No data available for this section
--- OUTSIDE RECORDS SUMMARY | 2017-09-15 17:31 | External Medical Summary ---
:1965 Author Organization eClinicalWorks Care Team Providers Name Role Phone Ildefonso Meyer Provider Role Unavailable Allergies No Known Allergies Problems Problem Type Condition Code Onset Dates Condition Status Problem Mitral Valve Prolapse 424.0 Active Problem Palpitations 785.1 Active Problem SVT, Sustained 427.0 Active Medications No Known Medications Results No Known Results Summary Purpose eClinicalWorks Submission
--- OUTSIDE RECORDS SUMMARY | 2017-09-15 17:31 | External Medical Summary ---
:1965 Author Organization eClinicalWorks Care Team Providers Name Role Phone Marilu Tarango Provider Role Unavailable Allergies No Known Allergies Problems Problem Type Condition ICD-9 Code Onset Dates Condition Status Problem Urinary tract infection, site 599.0 Active not specified Problem Unspecified cardiac dysrhythmia 427.9 Active Problem Mononeuritis of unspecified site 355.9 Active Problem Routine general medical V70.0 Inactive examination at health care facility Problem Abdominal pain, unspecified site 789.00 Inactive Problem Flu vaccine need V04.81 Active Problem Dysthymic disorder 300.4 Active Problem Mitral valve disorders 424.0 Active Problem Unspecified acute reaction to 308.9 Active stress Problem Flatulence, eructation, and gas 787.3 Active pain Medications No Known Medications Results No Known Results Summary Purpose eClinicalWorks Submission
[2017-09-15] MEDS ORDERED: ENOXAPARIN 60 MG/0.6 ML INJECTION SQ ONE (17:47)
[2017-09-15] MEDS ORDERED: AMIODARONE 150 MG in NS 100 ML IV ONE (18:21)
[2017-09-15 18:46] VITALS: BMI 22.2
--- NOTE | 2017-09-15 19:35 | Cardiology History & Physical ---
History of Present Illness Chief complaint: racing heart beat HPI: Jewell Gallardo is a 51 year old woman with a known h/o mitral valve prolapse and history of SVT over 1 year ago, presented to the ED for a fast heart rate. 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 Approximately 1 year ago, she self-discontinued her digoxin and labetalol. Today , she was talking on the phone with her children when she felt her heart go into a fast rhythm again. Following 6mg and then 12mg of Adenosine, Cardizem 20mg and then 25mg IVP in the ED, she was in AFib RVR with a rate of the 120s. She is admitted to Dr. Zazueta to observation in CCU for Cardizem and Amiodarone drips as well as antiarrhythmic therapy of Flecainide 50mg BID. Review of Systems - Constitutional Constitutional: Absent: chills, fatigue, fever(s) - EENMT Eyes: Absent: change in vision Balance: Absent: vertigo Mouth/Throat: Absent: sore throat - Cardiovascular Cardiovascular: Present: palpitations. Absent: chest pain, syncope, dyspnea on exertion, edema, heart murmur Vascular: Absent: pedal edema - Respiratory Respiratory: Absent: cough, dyspnea, dyspnea on exertion - Gastrointestinal Gastrointestinal: Absent: abdominal pain, constipation, diarrhea, nausea, vomiting - Genitourinary Genitourinary: Absent: dysuria - Integumentary/Breasts Integumentary: Absent: rash - Neurological Neurological: Present: dizziness (at times when she stands) - Endocrine Endocrine: Present: palpitations PFS Patient Stated Medical History Cardiac Arrhythmia Yes Other Cardiology Yes: SVT, mitral valve prolapse Other Musculoskeletal Yes Depression Yes Medical History Updates: Anxiety/depr Surgical History: C section. Hysterectomy Family History: No family history of Heart disease, DM or CVA - Social History Smoking status: Never smoker Substance use type: does not use Alcohol intake frequency: does not drink Housing: house Household members: spouse, children Current occupational status: employed Current residence: Apartment/Private Home Medications Home Medications Medication Instructions Recorded Confirmed Type Gabapentin 900 mg PO HS #360 10/14/14 09/15/17 History buPROPion HCl [Bupropion Xl] 300 mg PO HS #30 11/14/14 10/16/17 History Amitriptyline [Elavil] 50 mg PO HS 09/15/17 09/15/17 History Cholecalciferol [Vit. D-3] 1,000 unit PO DAILY 09/15/17 09/15/17 History Multivitamin [One Daily 1 each PO DAILY 09/15/17 09/15/17 History Multivitamin] Allergies Allergy/AdvReac Type Severity Reaction Status Date / Time hydrocodone Allergy Severe ALL Verified 09/15/17 16:52 NARCOTICS MAKE HER ITCH, NO RASH; NAUSEA ON EMPTY STOMAC Iodinated Contrast- Oral and Allergy Severe SWOLLEN Verified 09/15/17 16:52 IV Dye LIP, HIVES Sulfa (Sulfonamide Allergy Severe hives, Verified 09/15/17 16:52 Antibiotics) anaphalactic reaction Tetanus Vaccines and Toxoid Allergy Intermediate FEVER,NAUSEA, Verified 16:52 ACHEY ibuprofen Allergy Unknown ITCHING Verified 09/15/17 16:52 morphine AdvReac Unknown MAKES ITCH Verified 09/15/17 16:52 Exam Vital signs: Temperature 98.0 F 09/15/17 16:27 Pulse Rate 113 H 09/15/17 18:15 Respiratory Rate 20 09/15/17 18:15 Blood Pressure 124/79 09/15/17 18:15 Pulse Oximetry 99 09/15/17 18:15 - Constitutional no acute distress, thin, cooperative - Routine HEENT Exam Head: Present: normocephalic ENT: Present: mucous membranes moist - Routine Neck Exam Absent: JVD, carotid bruit - Routine Chest/Breast/Axilla Exam Chest wall: Absent: tenderness - Routine Respiratory Exam Present: CTA bilaterally. Absent: wheezes, crackles - Routine Cardiovascular Exam Present: no murmur, irregular rhythm - Routine Abdominal Exam Present: soft, normoactive bowel sounds - Routine Extremities Exam Present: no edema - Routine Skin Exam Present: intact, dry, warm - Routine Neurological Exam Present: alert, oriented X3 - Routine Psychiatric Exam Present: normal affect, normal thought process Results 09/16/17 05:04 09/16/17 05:04 Intake and Output 09/15/17 09/15/17 09/15/17 06:59 14:59 22:59 Other: Weight 125 lb 7.088 oz Patient Weight 09/16/17 06:59 Weight 125 lb 7.088 oz 09/15/17 09/16/17 16:35 05:04 WBC 6.8 7.1 RBC 4.45 4.45 Hgb 13.0 12.8 Hct 38.9 38.9 MCV 87.4 87.4 MCH 29.2 28.8 MCHC 33.4 32.9 RDW Std Deviation 39.4 39.0 Plt Count 250 233 MPV 9.6 9.7 Immature Gran % (Auto) 0.0 Neut % (Auto) 60.5 Lymph % (Auto) 30.2 [place] % (Auto) 6.2 Eos % (Auto) 2.5 Baso % (Auto) 0.6 Neut # (Auto) 4.1 Lymph # (Auto) 2.0 [place] # (Auto) 0.4 Eos # (Auto) 0.2 Baso # (Auto) 0.0 Abs Immat Gran (auto) 0.00 - Imaging and Cardiology Echo: pending Imaging & Cardiology Narrative: Date of Exam: 09/15/17 Ordering Provider: Dante Trotter DO Type of Exam(s): XR chest 1V Reason for Exam(s): Tachy Indication: Tachy PROCEDURE: XR chest 1V: Encounter: Initial Comparison: None FINDINGS: The lungs are clear. Slight asymmetric lucency of the left lung without clear etiology. There is no abnormal airspace opacity, pleural effusion or pneumothorax identified. The heart size, pulmonary vasculature and mediastinum are within normal limits. No significant skeletal abnormality is seen. IMPRESSION: No acute cardiopulmonary abnormality. - EKG Interpretation EKG shows: atrial fibrillation EKG interpretations - Dysrhythmias Supraventricular dysrhythmia: atrial fibrillation Hospital Course This is a general summary of the patient's hospital course. For more details refer to the complete medical record. Time spent with patient: 25 - 35 minutes DVT Prophylaxis: Lovenox Assessment and Plan - Attestation Attestation Narrative: 09/16/17 12:55 Recommendation After examining the patient I agree with the above assessment. I am involved in the formulation of the patient's plan of care. - Assessment and Plan (1) A-fib Current visit: Yes Status: Acute Admit to CCU - Cardizem drip, titrate to control rate </=100 - Amiodarone bolus and drip - Flecainide 50mg po BID - Echo, DCCV tomorrow if not converted in am - TSH, MAG, Troponin x 3 - EKG in AM
[2017-09-15] MEDS: AMIODARONE 900 MG in NS 500ml 500 ML IV SCH ×2 (19:38→20:09)
[2017-09-15] MEDS ORDERED: GABAPENTIN 300 MG CAPSULE PO SCH (21:00)
[2017-09-15] MEDS ORDERED: AMITRIPTYLINE 50 MG TABLET PO SCH (21:00)
[2017-09-15] MEDS ORDERED: BuPROPion XL 300mg (24HR) TABLET PO SCH (21:00)
[2017-09-15] MEDS: FLECAINIDE 100 MG TABLET PO SCH (22:15)
[2017-09-16] MEDS ORDERED: AMIODARONE 900 MG in NS 500ml 500 ML IV SCH (00:10)
[2017-09-16] MEDS ORDERED: ACETAMINOPHEN 325 MG TABLET PO PRN (00:37)
--- NOTE | 2017-09-16 08:10 | XRay Report ---
Indication: Tachy PROCEDURE: XR chest 1V: Encounter: Initial Comparison: None FINDINGS: The lungs are clear. Slight asymmetric lucency of the left lung without clear etiology. There is no abnormal airspace opacity, pleural effusion or pneumothorax identified. The heart size, pulmonary vasculature and mediastinum are within normal limits. No significant skeletal abnormality is seen. IMPRESSION: No acute cardiopulmonary abnormality. .
[2017-09-16] MEDS: FLECAINIDE 100 MG TABLET PO SCH (08:28)
--- NOTE | 2017-09-16 09:30 | Discharge Summary ---
<Kimmie Smith - Last Filed: 09/16/17 21:23> Discharge Information Date of admission: 09/15/17 18:00 Anticipated date of discharge: 09/16/17 Attending Physician: Lyndon Zazueta MD Primary care physician: DIAZ BURRIS - Discharge Diagnosis (1) A-fib Status: Acute Discharge Diagnosis: Paroxysmal atrial fibrillation - Flecainide 50mg po morning and evening - Xarelto 20mg with supper for 30 days - Laboratory Labs: 09/16/17 05:04 09/16/17 05:04 - Radiology Radiology: Date of Exam: 09/16/17 Type of Exam(s): US echo doppler complete DATE OF PROCEDURE September 16, 2017 This is a two-dimensional echo with spectral Doppler, color-flow and M-mode. In with was obtained in a patient with atrial fibrillation. Left atrial dimension is normal. Left ventricle end-diastolic dimension is normal. Left ventricle wall thickness is normal. LV systolic function is normal with ejection fraction of 65%. Right atrium is normal. Right ventricle is normal. Aortic root dimension is normal. Mitral valve shows very mild anterior leaflet prolapse with no stenosis or insufficiency. Aortic valve appears to be normal. Tricuspid valve shows trace of tricuspid regurgitation with normal estimated pulmonary artery systolic pressure of 19. Pulmonary valve shows mild pulmonary insufficiency. There is no pericardial effusion. IMPRESSION 1. Normal LV systolic function with ejection fraction of 65%. 2. Very mild anterior leaflet mitral valve prolapse. 3. Trace of tricuspid regurgitation with normal estimated pulmonary artery systolic pressure of 19. 4. Mild pulmonary insufficiency. Date of Exam: 09/15/17 Ordering Provider: Dante Trotter DO Type of Exam(s): XR chest 1V Reason for Exam(s): Tachy Indication: Tachy PROCEDURE: XR chest 1V: Encounter: Initial Comparison: None FINDINGS: The lungs are clear. Slight asymmetric lucency of the left lung without clear etiology. There is no abnormal airspace opacity, pleural effusion or pneumothorax identified. The heart size, pulmonary vasculature and mediastinum are within normal limits. No significant skeletal abnormality is seen. IMPRESSION: No acute cardiopulmonary abnormality. History of Present Illness HPI: Jewell Gallardo is a 51 year old woman with a known h/o mitral valve prolapse and history of SVT over 1 year ago, presented to the ED for a fast heart rate. 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 Approximately 1 year ago, she self-discontinued her digoxin and labetalol. Today , she was talking on the phone with her children when she felt her heart go into a fast rhythm again. Following 6mg and then 12mg of Adenosine, Cardizem 20mg and then 25mg IVP in the ED, she was in AFib RVR with a rate of the 120s. She is admitted to Dr. Zazueta to observation in CCU for Cardizem and Amiodarone drips as well as antiarrhythmic therapy of Flecainide 50mg BID. Hospital Course This is a general summary of the patient's hospital course. For more details refer to the complete medical record. Hospital course: Converted to SR on Amiodarone drip shortly after admission to CCU. Started on Flecainide 50mg BID for antiarrhythmic therapy. Admits today that she has noticed some tachycardia and lightheadedness that is brief upon standing. Should have outpatient Holter monitor to evaluate for POTS. DVT Prophylaxis: Lovenox Exam Vital signs: Temperature 97.8 F 09/16/17 04:00 Pulse Rate 80 09/16/17 06:15 Respiratory Rate 16 09/16/17 06:15 Blood Pressure 95/65 09/16/17 06:15 Pulse Oximetry 97 09/16/17 06:15 - Constitutional no acute distress, well nourished, cooperative - Routine HEENT Exam Head: Present: normocephalic ENT: Present: mucous membranes moist - Routine Neck Exam Absent: JVD, carotid bruit - Routine Chest/Breast/Axilla Exam Chest wall: Absent: tenderness - Routine Respiratory Exam Present: CTA bilaterally. Absent: rales, wheezes - Routine Cardiovascular Exam Present: RRR, no murmur. Absent: JVD - Routine Abdominal Exam Present: soft, normoactive bowel sounds - Routine Extremities Exam Present: no edema - Routine Skin Exam Present: intact, dry, warm - Routine Neurological Exam Present: alert, oriented X3 - Routine Psychiatric Exam Present: normal affect, normal thought process Results 09/16/17 05:04 09/16/17 05:04 Cardiac Enzymes 09/15/17 09/16/17 Range/Units 22:07 05:04 Troponin I < 0.012 < 0.012 (0-0.12) ng/ml Lipids 09/16/17 Range/Units 05:04 Triglycerides 70 (35-135) MG/DL HDL Cholesterol 67 H (40-60) MG/DL CBC 09/16/17 Range/Units 05:04 WBC 7.1 (4.5-11.0) T/MM3 RBC 4.45 (4.00-5.20) M/MM3 Hgb 12.8 (12-16) GM/DL Hct 38.9 (36-46) % Plt Count 233 (130-400) T/MM3 Comprehensive Metabolic Panel 09/16/17 Range/Units 05:04 Sodium 144 (134-144) MEQ/L Potassium 4.4 (3.6-5) MEQ/L Chloride 107 (98-107) MEQ/L Carbon Dioxide 28 (22-30) MEQ/L BUN 8.0 (7-17) MG/DL Creatinine 0.8 D (0.7-1.2) MG/DL Glucose 94 (65-110) MG/DL Calcium 9.6 (8.4-10.2) MG/DL Intake and Output 09/15/17 09/16/17 09/16/17 22:59 06:59 14:59 Intake Total 817.221 / 1817.221 263.721 / 263.721 16.7 / 16.7 Balance 817.221 / 1817.221 263.721 / 263.721 16.7 / 16.7 Intake: IV . 263.721 / 263.721 16.7 / 16.7 Amiodarone 900 mg In NS . 263.721 / 263.721 16.7 / 16.7 500ml 500 ml @ 1 MG/MIN 33.33 mls/hr IV .Q15H1M [facility] Rx#:[id number] Oral 800 / 800 0 / 0 Other: # Voids 1 Weight 125 lb 7.088 oz - EKG Interpretation EKG: sinus rhythm Discharge Plan - Med Rec/Dispo Referrals/Follow Up: Lyndon Zazueta MD [Physician] - 10/02/17 2:30 pm Giovanniuvjv Instructions: A-fib (Atrial Fibrillation) (DC) Prescriptions: New Rivaroxaban [Xarelto] 20 mg PO WS tablet Flecainide [Tambocor] 50 mg PO BID #60 tab Continue Amitriptyline [Elavil] 50 mg PO HS buPROPion HCl [Bupropion Xl] 300 mg PO HS #30 Gabapentin 900 mg PO HS #360 Cholecalciferol [Vit. D-3] 1,000 unit PO DAILY Multivitamin [One Daily Multivitamin] 1 each PO DAILY - Disposition 01 Discharged Home, Self-Care <Lyndon Zazueta - Last Filed: 09/18/17 14:52> Discharge Information Date of admission: 09/15/17 18:00 Attending Physician: Lyndon Zazueta MD Primary care physician: DIAZ BURRIS - Discharge Diagnosis (1) A-fib Status: Acute - Laboratory Labs: 09/16/17 05:04 09/16/17 05:04 Hospital Course This is a general summary of the patient's hospital course. For more details refer to the complete medical record. Exam Vital signs: Temperature 97.6 F 09/16/17 17:28 Pulse Rate 88 09/16/17 17:28 Respiratory Rate 14 09/16/17 17:28 Blood Pressure 114/77 09/16/17 17:28 Pulse Oximetry 98 09/16/17 17:28 Results 09/16/17 05:04 09/16/17 05:04 Discharge Plan - Med Rec/Dispo - Attestation Attestation Narrative: 09/18/17 14:52 Recommendation After examining the patient I agree with the above assessment. I am involved in the formulation of the patient's plan of care.
[2017-09-16] MEDS ORDERED: INFLUENZA VAC QIV 2017-18 (Fluarix*)(>=3yo) 0.5ml IM ONE (12:22)
[2017-09-16 13:59] VITALS: RESP 14
--- NOTE | 2017-09-16 14:25 | Echocardiogram ---
DATE OF PROCEDURE September 16, 2017 This is a two-dimensional echo with spectral Doppler, color-flow and M-mode. In with was obtained in a patient with atrial fibrillation. Left atrial dimension is normal. Left ventricle end-diastolic dimension is normal. Left ventricle wall thickness is normal. LV systolic function is normal with ejection fraction of 65%. Right atrium is normal. Right ventricle is normal. Aortic root dimension is normal. Mitral valve shows very mild anterior leaflet prolapse with no stenosis or insufficiency. Aortic valve appears to be normal. Tricuspid valve shows trace of tricuspid regurgitation with normal estimated pulmonary artery systolic pressure of 19. Pulmonary valve shows mild pulmonary insufficiency. There is no pericardial effusion. IMPRESSION 1. Normal LV systolic function with ejection fraction of 65%. 2. Very mild anterior leaflet mitral valve prolapse. 3. Trace of tricuspid regurgitation with normal estimated pulmonary artery systolic pressure of 19. 4. Mild pulmonary insufficiency. MTDD
[2017-09-16 17:28] VITALS: BP 114/77; PULSE 88; TEMP 97.6; O2SAT 98
[2017-09-16] MEDS ORDERED: RIVAROXABAN 20 MG TABLET PO SCH (17:30)
[2017-09-16] MEDS ORDERED: INFLUENZA VAC. INJ. ADMIN CHARGE INJ ONE (18:34)
== END 2017-09-16 18:35 | disposition home or self-care (01) ==
LOC: CCU 16:19 → ED 16:19 → CCU 18:29 → MED 09-16 10:40
PROVIDERS: ADMIT Internal Medicine Cardiovascular Disease; ATTEND Internal Medicine Cardiovascular Disease